=== PATIENT | male | born 2000 | race Caucasian/White ===

== ENCOUNTER 2021-01-16 03:48 | Emergency (ER) | payer OTHER ==
[~2021-01-16] VITALS: Ht 182.9 cm; Wt 79.4 kg
[2021-01-16 03:48] VITALS: BP_SYST 120
--- NOTE | 2021-01-16 03:48 | NUR ---
Patient to ER bed ch2 to gown for evaluation. Side rails up. Report given to self.
--- NOTE | 2021-01-16 04:00 | NUR ---
ER Dr. Murillo at bedside examining patient.
--- NOTE | 2021-01-16 04:30 | NUR ---
Written and verbal consent obtained from patient for blood alcohol, name and verified by patient. Disinfected patient's skin with that did not contain alcohol or other volatile organic compound. Collected the blood from the subject named by venipuncture, in the presence of Officer Amina Eddy. Used a sterile, dry hypodermic needle and dry vacuum blood collection. Two dry vacuum blood collection was supplied by the officer named above. Withdrew a specimen of blood from Right Antecubital Fossa of the subject named above. Inverted both blood tubes several times to ensure that the preservative and anticoagulant were thoroughly mixed in the blood specimen. I initialed both blood tube labels for identification. The labeled blood tubes were handed directly to the Officer named above. The blood tubes stopper remained in place while I had possession of the blood tubes. The Officer placed tubes into envelope and sealed it in my presence. Envelope initialed by myself and Officer named above. Patient tolerated well, bandage applied, and bleeding controlled.
[2021-01-16 05:11] VITALS: BP_SYST 122
--- NOTE | 2021-01-16 05:11 | NUR ---
Patient was medically cleared, given written and verbal discharge instructions and verbalizes understanding. ER MD discussed with patient the treatment provided. Patient in stable condition. ID arm band removed. No Rx given. Patient educated on pain management and to follow up with PMD. Pain Scale is 0/10. Patient accompanied by [employer] in handcuff to police car, in custody.
== END 2021-01-16 05:11 | disposition home or self-care (01) ==
LOC: SED 03:48
DX: Z02.83 Encounter for blood-alcohol and blood-drug test (principal)